=== PATIENT | female | born 2000 | race Two or more races ===

== ENCOUNTER 2025-01-15 23:15 | Inpatient (IN) ==
[2025-01-15 23:33] VITALS: BMI 25.4
[2025-01-15 23:37] LABS: BLOOD/HEMOGLOBIN,URINE 1+ (NEGATIVE); LEUKOCYTE ESTERASE ,URINE 1+ (NEGATIVE); NITRITES,URINE NEGATIVE (NEGATIVE)
[2025-01-15 23:40] LABS: APPEARANCE,URINE SLIGHTLY HAZY (CLEAR); SQUAMOUS EPITHELIAL CELL,UR NUMEROUS /HPF (NEGATIVE)
[2025-01-15 23:49] LABS: AMNISURE ROM TEST NO MEMBRANES RUPTURE (NO RUPTURE)
[2025-01-16] MEDS ORDERED: NUBAIN INJ 20 MG AMP IVP PRN (00:41)
[2025-01-16] MEDS ORDERED: ZOFRAN INJ 4 MG VIAL IVP PRN (00:41)
[2025-01-16] MEDS ORDERED: REGLAN INJ 10 MG VIAL IVP PRN (00:41)
[2025-01-16 01:19] LABS: MEAN PLATELET VOLUME 9.2 fL (7.4-11.0); RED CELL DISTRIBUTION WIDTH 18.4 % (11.6-16.5)
[2025-01-16 01:28] LABS: CREATININE 0.53 mg/dL (0.55-1.02); eGFR NON BLACK RACES > 60 (>60)
[2025-01-16] MEDS ORDERED: LR 1,000 ML IV 1,000 ML IV ONE (01:38)
[2025-01-16 01:40] LABS: PLATELET MORPHOLOGY COMMENT NORMAL (NORMAL)
[2025-01-16] MEDS: LR 1,000 ML IV 1,000 ML IV SCH (01:48)
[2025-01-16] MEDS: OXYTOCIN 20 UNIT/1,000 ML-NS 20 UNIT/1,000 ML PLAST..BAG IV PRN (01:50)
[2025-01-16] MEDS: NUBAIN INJ 10 MG AMP ONE (02:47)
[2025-01-16] MEDS ORDERED: AMBIEN PO PRN (08:08)
[2025-01-16] MEDS ORDERED: MILK OF MAGNESIA PO PRN (08:08)
[2025-01-16] MEDS: OXYTOCIN 20 UNIT/1,000 ML-NS 20 UNIT/1,000 ML PLAST..BAG IV SCH (08:43)
[2025-01-16] MEDS: MOTRIN TAB 800 MG PO PRN (09:14)
[2025-01-16] MEDS: PRENATAL PLUS PO SCH (09:14)
[2025-01-16] MEDS: ADACEL or BOOSTRIX TDaP VACCINE IM ONE (09:16)
[2025-01-16] MEDS: DERMOPLAST PAIN RELIEF SPRAY TOP PRN (09:20)
[2025-01-16] MEDS: PITOCIN IVP ONE (09:41)
[2025-01-16] MEDS: BETADINE SOLN ONE (09:42)
[2025-01-16] MEDS: PITOCIN ONE (09:42)
[2025-01-16] MEDS: ZOFRAN INJ 4 MG VIAL ONE (09:42)
[2025-01-16] MEDS: XYLOCAINE 1 % (PLAIN) ONE (09:43)
[2025-01-17] MEDS: NS 100 ML IV 100 ML with VENOFER 400 MG IV ONE (06:19)
[2025-01-17 13:30] VITALS: BP 92/52; PULSE 68; RESP 18; TEMP 97.5; O2SAT 99
== END 2025-01-17 14:50 | disposition home or self-care (01) | DRG 768 ==
LOC: ER 23:15 → LD 01-16 00:41 → MED/SURG 01-16 08:16
PROVIDERS: ADMIT Obstetrics & Gynecology Obstetrics; ATTEND Obstetrics & Gynecology Obstetrics
DX: Z3A.40 40 weeks gestation of pregnancy; Z37.0 Single live birth; O70.20 Third degree perineal laceration during delivery, unspecified; Z55.8 Other problems related to education and literacy; O26.893 Other specified pregnancy related conditions, third trimester